=== PATIENT | female | born 1980 | race Caucasian/White ===

== ENCOUNTER 2019-07-29 12:54 | Emergency (ER) | payer OTHER ==
[2019-07-29 13:07] VITALS: O2SAT 98
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
[2019-07-29] MEDS ORDERED: HYDROcodone 5MG/APAP 325MG 1 EA TAB PO ONE (14:06)
[2019-07-29] MEDS ORDERED: CYCLOBENZAPRINE HCL 5 MG TAB PO ONE (14:06)
--- NOTE | 2019-07-29 14:08 | CT ---
EXAM DESCRIPTION: Head CLINICAL HISTORY: trauma COMPARISON: None available TECHNIQUE: Non contrast cranial CT with multiplanar reconstructions. FINDINGS: No acute intracranial hemorrhage, transcortical infarct, mass or mass effect. No intra or extra-axial fluid collection. No focal edema or midline shift. The ventricle and sulci are normal for age. No hydrocephalus. The alberto-white matter differentiation is intact. No displaced calvarial fracture. Mild mucoperiosteal thickening within the left maxillary sinus and bilateral ethmoid air cells. The remainder of the visualized paranasal sinuses and the mastoids are clear. IMPRESSION: 1. No acute intracranial abnormality. This exam was performed according to our departmental dose-optimization program, which includes automated exposure control, adjustment of the mA and/or kV according to patient size and/or use of iterative reconstruction technique. Electronically signed by: Perfecto Alcocer DO 07/29/2019 2:06 PM [facility]
--- NOTE | 2019-07-29 14:13 | CT ---
EXAM DESCRIPTION: Cervical Spine CLINICAL HISTORY: trauma COMPARISON: None Available. TECHNIQUE: Cervical CT is performed with thin-section axial imaging. MPRs are created and reviewed as well. This exam was performed according to our departmental dose-optimization program, which includes automated exposure control, adjustment of the mA and/or kV according to patient size and/or use of iterative reconstruction technique. FINDINGS: Mild straightening of the cervical spine can be positional or due to muscle spasm. The vertebral body heights are relatively maintained. No displaced fracture or significantly appearing subluxation is seen. The craniocervical junction is intact. The atlantodental dental interval is intact. The prevertebral soft tissues are within normal limits. Subcentimeter thyroid hypodensities, no routine follow-up. IMPRESSION: 1. No displaced cervical spine fracture or malalignment. Electronically signed by: Perfecto Alcocer DO 07/29/2019 2:11 PM [facility]
--- NOTE | 2019-07-29 14:18 | CT ---
EXAM DESCRIPTION: Thoracic Spine CLINICAL HISTORY: trauma COMPARISON: None Available. TECHNIQUE: Multislice CT of the thoracic spine is performed with thin-section axial imaging. MPRs are created and reviewed as well. FINDINGS: The thoracic spinal alignment is intact without significant listhesis. The vertebral body heights are maintained. No displaced fracture is seen. Mild upper thoracic spine degenerative changes with slight intervertebral disc height loss and endplate sclerosis. No paraspinal hematoma. The visualized soft tissues are unremarkable. IMPRESSION: 1. No displaced thoracic spine fracture or malalignment. This exam was performed according to our departmental dose-optimization program, which includes automated exposure control, adjustment of the mA and/or kV according to patient size and/or use of iterative reconstruction technique. Electronically signed by: Perfecto Alcocer DO 07/29/2019 2:[address] [facility]
[2019-07-29 14:57] VITALS: BP 107/75; TEMP 97
== END 2019-07-29 14:43 | disposition home or self-care (01) ==
LOC: ER 12:54
DX: S09.90XA Unspecified injury of head, initial encounter (principal); S16.1XXA Strain of muscle, fascia and tendon at neck level, initial encounter; M54.6 Pain in thoracic spine; Z88.8 Allergy status to other drugs, medicaments and biological substances; V49.59XA Passenger injured in collision with other motor vehicles in traffic accident, initial encounter; Y92.410 Unspecified street and highway as the place of occurrence of the external cause